=== PATIENT | female | born 1935 | race African-American/Black ===

== ENCOUNTER 2018-12-17 18:57 | Inpatient (IN) | payer MEDICARE, MEDICAID ==
[~2018-12-17] VITALS: Ht 167.6 cm; Wt 86.2 kg
[2018-12-17] MEDS ORDERED: ONDANSETRON 4MG ODT PO ONE (19:45)
[2018-12-17] MEDS ORDERED: HYDROCODONE/ACETAMINOPHEN 5/325MG TABLET PO ONE (19:45)
[2018-12-17 23:28] LABS: BASOPHILS % 0.7 % (0.0-2.0); EOSINOPHILS % 1.7 % (0.0-5.0); HEMATOCRIT. 33.1 % (36.0-48.0); HEMOGLOBIN. 10.9 g/dL (12.0-16.0); LYMPHOCYTES % 18.7 % (20.0-50.0); MEAN CORPUSCULAR HEMOGLOBIN 29.5 pg (28.0-32.0); MEAN CORPUSCULAR VOLUME 89.3 fL (81.0-99.0); MEAN PLATELET VOLUME 8.1 fl (7.4-10.4); MONOCYTES % 5.1 % (2.0-8.0); NEUTROPHILS % 73.8 % (40.0-76.0); PLATELET 291 x1000/uL (130-400); RED BLOOD CELL COUNT 3.71 mill/uL (4.2-5.4); RED CELL DISTRIBUTION WIDTH 14.4 % (11.6-14.6)
[2018-12-17 23:34] LABS: CHLORIDE 111 mEq/L (98-107)
[2018-12-17 23:37] LABS: PARTIAL THROMBOPLASTIN TIME 26.3 sec (23.4-31.0); PROTHROMBIN TIME 9.9 sec (9.1-11.1)
[2018-12-18] MEDS ORDERED: SODIUM CHLORIDE 0.9% 500 ML IV ONE (00:16)
[2018-12-18] MEDS ORDERED: DEXTROSE 50% WATER 50ML SYRINGE IV PRN (03:15)
[2018-12-18] MEDS ORDERED: CEFTRIAXONE 1 G PREMIX 50 ML IV SCH (03:15)
[2018-12-18 04:00] VITALS: BP 126/67
[2018-12-18] MEDS ORDERED: SODIUM CHLORIDE 0.45% 1,000 ML IV SCH (04:30)
[2018-12-18] MEDS: HYDROCODONE/ACETAMINOPHEN 5/325MG TABLET PO PRN ×3 (04:36→17:31)
[2018-12-18 04:37] VITALS: BP 129/78
[2018-12-18] MEDS: CEFTRIAXONE 1,000 MG in DEXTROSE 5% WATER 50 ML IV SCH (06:53)
[2018-12-18] MEDS: BLOOD SUGAR DIAGNOSTIC STRIP TEST SCH ×4 (06:54→21:00)
[2018-12-18] MEDS: INSULIN LISPRO 100 UNITS/ML SUBCUT SCH ×4 (07:50→21:00)
[2018-12-18 08:00] VITALS: BP 155/68
[2018-12-18 08:40] LABS: BASOPHILS % 0.8 % (0.0-2.0); EOSINOPHILS % 2.2 % (0.0-5.0); HEMATOCRIT. 34.3 % (36.0-48.0); HEMOGLOBIN. 11.1 g/dL (12.0-16.0); MEAN CORPUSCULAR HEMOGLOBIN 30.2 pg (28.0-32.0); MEAN CORPUSCULAR VOLUME 93.3 fL (81.0-99.0); MEAN PLATELET VOLUME 8.3 fl (7.4-10.4); MONOCYTES % 5.4 % (2.0-8.0); NEUTROPHILS % 69.6 % (40.0-76.0); PLATELET 304 x1000/uL (130-400); RED BLOOD CELL COUNT 3.68 mill/uL (4.2-5.4); RED CELL DISTRIBUTION WIDTH 14.4 % (11.6-14.6)
[2018-12-18] MEDS: PANTOPRAZOLE SODIUM 40 MG/VIAL IV SCH (09:00)
[2018-12-18 09:10] LABS: CHLORIDE 109 mEq/L (98-107)
[2018-12-18 11:17] VITALS: BP 144/73
[2018-12-18] MEDS ORDERED: LIDOCAINE HCL 1% 20ML VIAL (Pyxis) INJ ONE (14:14)
[2018-12-18] MEDS ORDERED: SODIUM BICARBONATE 4% (2.4MEQ) 5ML VIAL IV ONE (14:14)
[2018-12-18] MEDS ORDERED: IOHEXOL-300 50 ML BOTTLE IV ONE (14:42)
[2018-12-18] MEDS ORDERED: DOCUSATE SODIUM 100MG CAPSULE PO PRN (15:30)
[2018-12-18] MEDS ORDERED: ONDANSETRON HCL 4MG/2ML INJ IV PRN (15:30)
[2018-12-18] MEDS ORDERED: CLONIDINE 0.1MG TABLET PO PRN (15:30)
[2018-12-18] MEDS ORDERED: ACETAMINOPHEN 650MG SUPP PR PRN (15:30)
[2018-12-18] MEDS ORDERED: DIPHENHYDRAMINE 50MG/ML VIAL IV PRN (15:30)
[2018-12-18 16:00] VITALS: BP 146/72
[2018-12-18 16:36] LABS: T4 FREE 1.01 ng/dL (0.76-1.46)
[2018-12-18 17:00] LABS: CLARITY URINE CLOUDY (CLEAR); COLOR URINE YELLOW (YELLOW); KETONES URINE TRACE (NEGATIVE); LEUKOCYTE ESTERASE URINE 2+ (NEGATIVE); NITRITE URINE POSITIVE (NEGATIVE); OCCULT BLOOD URINE NEGATIVE (NEGATIVE); PH URINE 6.5 (4.5-8.0); PROTEIN URINE NEGATIVE (NEGATIVE)
[2018-12-18] MEDS: AMLODIPINE 5MG TABLET PO SCH (17:30)
[2018-12-18] MEDS: DEXT 5%/0.45% NACL 1000ML 1,000 ML IV SCH (17:34)
[2018-12-18 20:00] VITALS: BP 140/74
[2018-12-19] VITALS: BP 126/74
[2018-12-19 04:00] VITALS: BP 144/73
[2018-12-19] MEDS: CEFTRIAXONE 1,000 MG in DEXTROSE 5% WATER 50 ML IV SCH (05:00)
[2018-12-19] MEDS: INSULIN LISPRO 100 UNITS/ML SUBCUT SCH ×4 (07:50→21:00)
[2018-12-19] MEDS: BLOOD SUGAR DIAGNOSTIC STRIP TEST SCH ×4 (07:50→21:04)
[2018-12-19] MEDS: DEXT 5%/0.45% NACL 1000ML 1,000 ML IV SCH (07:55)
[2018-12-19 08:00] VITALS: BP 139/70
[2018-12-19 08:02] LABS: HEMATOCRIT 32.3 % (36.0-48.0); HEMOGLOBIN 10.7 g/dL (12.0-16.0); MEAN CORPUSCULAR HEMOGLOBIN 31.4 pg (28.0-32.0); MEAN CORPUSCULAR VOLUME 94.5 fL (81.0-99.0); PLATELET 244 x1000/uL (130-400); RED BLOOD CELL COUNT 3.42 mill/uL (4.2-5.4); RED CELL DISTRIBUTION WIDTH 14.2 % (11.6-14.6)
[2018-12-19] MEDS: PANTOPRAZOLE SODIUM 40 MG/VIAL IV SCH (08:15)
[2018-12-19 08:18] LABS: CHLORIDE 109 mEq/L (98-107)
[2018-12-19] MEDS: ENOXAPARIN 40MG/0.4ML SYR SUBCUT SCH (08:23)
[2018-12-19] MEDS: AMLODIPINE 5MG TABLET PO SCH (08:23)
[2018-12-19 12:00] VITALS: BP 143/79
[2018-12-19] MEDS ORDERED: LACTULOSE 20G/30ML UDC PO SCH (12:30)
[2018-12-19] MEDS ORDERED: NA PHOS,M-B/NA PHOS,DI-BA ENEMA 118ML PR NR (12:45)
[2018-12-19] MEDS ORDERED: LEVOFLOXACIN 500MG TABLET PO SCH (13:00)
[2018-12-19] MEDS ORDERED: TRAMADOL 50MG TABLET PO PRN (13:00)
[2018-12-19 15:51] LABS: HEMATOCRIT 32.5 % (36.0-48.0); HEMOGLOBIN 10.6 g/dL (12.0-16.0); MEAN CORPUSCULAR HEMOGLOBIN 29.1 pg (28.0-32.0); MEAN CORPUSCULAR VOLUME 89.5 fL (81.0-99.0); PLATELET 282 x1000/uL (130-400); RED BLOOD CELL COUNT 3.64 mill/uL (4.2-5.4); RED CELL DISTRIBUTION WIDTH 14.2 % (11.6-14.6)
[2018-12-19 16:00] VITALS: BP 143/71
[2018-12-19 20:00] VITALS: BP 134/69
[2018-12-20] VITALS: BP 149/81
[2018-12-20] MEDS: DEXT 5%/0.45% NACL 1000ML 1,000 ML IV SCH ×2 (00:47→16:15)
[2018-12-20 04:00] VITALS: BP 149/81
[2018-12-20] MEDS: CEFTRIAXONE 1,000 MG in DEXTROSE 5% WATER 50 ML IV SCH (05:18)
[2018-12-20] MEDS: HYDROCODONE/ACETAMINOPHEN 5/325MG TABLET PO PRN (06:11)
[2018-12-20] MEDS: BLOOD SUGAR DIAGNOSTIC STRIP TEST SCH ×4 (06:21→21:00)
[2018-12-20] MEDS: INSULIN LISPRO 100 UNITS/ML SUBCUT SCH ×4 (07:43→21:00)
[2018-12-20 08:00] VITALS: BP 139/75
[2018-12-20] MEDS: ENOXAPARIN 40MG/0.4ML SYR SUBCUT SCH (08:23)
[2018-12-20] MEDS: PANTOPRAZOLE SODIUM 40 MG/VIAL IV SCH (08:23)
[2018-12-20] MEDS: DOCUSATE SODIUM 100MG CAPSULE PO SCH ×2 (08:23→16:14)
[2018-12-20] MEDS: AMLODIPINE 5MG TABLET PO SCH (08:24)
[2018-12-20 12:00] VITALS: BP 111/81
[2018-12-20] MEDS: ACETAMINOPHEN 325MG TABLET PO PRN (12:48)
[2018-12-20 16:00] VITALS: BP 156/83
[2018-12-20] MEDS ORDERED: PIPERACILLIN/TAZ 3.375G PREMIX 50 ML IV SCH (18:00)
[2018-12-20] MEDS ORDERED: VANCOMYCIN 1500MG in DEXTROSE 5% WATER 250ML IV NR (18:30)
[2018-12-20 18:39] LABS: HEMOGLOBIN 11.1 g/dL (12.0-16.0); MEAN CORPUSCULAR HEMOGLOBIN 29.2 pg (28.0-32.0); MEAN CORPUSCULAR VOLUME 89.2 fL (81.0-99.0); PLATELET 293 x1000/uL (130-400); RED BLOOD CELL COUNT 3.81 mill/uL (4.2-5.4); RED CELL DISTRIBUTION WIDTH 14.2 % (11.6-14.6)
[2018-12-20 20:00] VITALS: BP 166/88
[2018-12-20] MEDS ORDERED: LEVOFLOXACIN 500MG TABLET PO SCH (20:00)
[2018-12-21] VITALS: BP 137/70
[2018-12-21] MEDS: HYDROCODONE/ACETAMINOPHEN 5/325MG TABLET PO PRN (00:22)
[2018-12-21 04:00] VITALS: BP 121/64
[2018-12-21] MEDS: BLOOD SUGAR DIAGNOSTIC STRIP TEST SCH ×2 (06:39→11:22)
[2018-12-21] MEDS: INSULIN LISPRO 100 UNITS/ML SUBCUT SCH ×2 (07:00→12:20)
[2018-12-21 07:47] LABS: HEMATOCRIT 31.1 % (36.0-48.0); HEMOGLOBIN 10.4 g/dL (12.0-16.0); MEAN CORPUSCULAR HEMOGLOBIN 30.1 pg (28.0-32.0); MEAN CORPUSCULAR VOLUME 90.2 fL (81.0-99.0); PLATELET 263 x1000/uL (130-400); RED BLOOD CELL COUNT 3.45 mill/uL (4.2-5.4); RED CELL DISTRIBUTION WIDTH 14.1 % (11.6-14.6)
[2018-12-21 07:59] LABS: CHLORIDE 106 mEq/L (98-107)
[2018-12-21 08:00] VITALS: BP 127/87
[2018-12-21] MEDS ORDERED: LIDOCAINE HCL 1% 20ML VIAL (Pyxis) INJ ONE (08:09)
[2018-12-21] MEDS ORDERED: SODIUM BICARBONATE 4% (2.4MEQ) 5ML VIAL IV ONE (08:09)
[2018-12-21] MEDS: PANTOPRAZOLE SODIUM 40 MG/VIAL IV SCH (08:37)
[2018-12-21] MEDS: DOCUSATE SODIUM 100MG CAPSULE PO SCH (08:37)
[2018-12-21] MEDS: AMLODIPINE 5MG TABLET PO SCH (08:37)
[2018-12-21] MEDS: ENOXAPARIN 40MG/0.4ML SYR SUBCUT SCH (08:37)
[2018-12-21] MEDS: DEXT 5%/0.45% NACL 1000ML 1,000 ML IV SCH (09:55)
[2018-12-21 11:51] VITALS: BP 134/67
[2018-12-21 12:06] VITALS: BP 134/67
[2018-12-21] MEDS ORDERED: VANC125C4 MT (12:42)
[2018-12-21] MEDS ORDERED: PIPE3.3736 IV (12:46)
[2018-12-21] MEDS ORDERED: LEVO500T2 IV (12:46)
[2018-12-21] MEDS ORDERED: VANC250C4 IV (12:48)
[2018-12-21] MEDS ORDERED: VANCOMYCIN 1500MG in DEXTROSE 5% WATER 250ML IV SCH (13:30)
[2018-12-21] MEDS ORDERED: LEVO500T2 MT ×2 (14:36→14:39)
[2018-12-21] MEDS: ACETAMINOPHEN 325MG TABLET PO PRN (15:10)
[2018-12-21 15:35] VITALS: BP 137/70
[2018-12-21] MEDS ORDERED: VANCOMYCIN 1250MG in DEXTROSE 5% WATER 250ML IV SCH (16:00)
[2018-12-22] MEDS ORDERED: VANCOMYCIN 1 G PREMIX 200 ML IV SCH (06:00)
== END 2018-12-21 17:10 | DRG 872 ==
LOC: ER 18:57 → 6EST 23:53 → ENRESERV 12-18 00:04
PROVIDERS: ADMIT Internal Medicine; ATTEND Internal Medicine
PROC: 05H733Z Insertion of Infusion Device into Right Axillary Vein, Percutaneous Approach (ICD-10-PCS; principal; 2018-12-18)
PROC: B51M1ZA Fluoroscopy of Right Upper Extremity Veins using Low Osmolar Contrast, Guidance (ICD-10-PCS; 2018-12-18)
PROC: B54MZZA Ultrasonography of Right Upper Extremity Veins, Guidance (ICD-10-PCS; 2018-12-18)
PROC: 02HV33Z Insertion of Infusion Device into Superior Vena Cava, Percutaneous Approach (ICD-10-PCS; 2018-12-21)
PROC: B548ZZA Ultrasonography of Superior Vena Cava, Guidance (ICD-10-PCS; 2018-12-21)
PROC: B5181ZA Fluoroscopy of Superior Vena Cava using Low Osmolar Contrast, Guidance (ICD-10-PCS; 2018-12-21)
DX: A41.9 Sepsis, unspecified organism (principal); N39.0 Urinary tract infection, site not specified; I69.354 Hemiplegia and hemiparesis following cerebral infarction affecting left non-dominant side; D68.59 Other primary thrombophilia; L03.90 Cellulitis, unspecified; F11.20 Opioid dependence, uncomplicated; S80.11XA Contusion of right lower leg, initial encounter; M16.0 Bilateral primary osteoarthritis of hip; I10 Essential (primary) hypertension; E86.0 Dehydration; E66.9 Obesity, unspecified; E11.9 Type 2 diabetes mellitus without complications; K21.9 Gastro-esophageal reflux disease without esophagitis; K59.09 Other constipation; Z96.651 Presence of right artificial knee joint; E78.5 Hyperlipidemia, unspecified; D64.9 Anemia, unspecified; W01.0XXA Fall on same level from slipping, tripping and stumbling without subsequent striking against object, initial encounter; Y93.89 Activity, other specified; Y99.8 Other external cause status; Z91.012 Allergy to eggs; Y92.129 Unspecified place in nursing home as the place of occurrence of the external cause; Z90.710 Acquired absence of both cervix and uterus
CPT/HCPCS: 36415; 36569; 71045; 72131; 72192; 73502; 73552; 73562; 73700; 74018; 75820; 76937; 77001; 80048; 80061; 82962; 83036; 83880; 84145; 84439; 84443; 84484; 85027; 86850; 86900; 93005; 93970; 93971; 97162; 99285; C1725; C1893; C9113; J0696; J1650; J1815; J2543; J3370; J3490; J7040; J7050; J7060; Q0162; Q9967

== ENCOUNTER 2025-09-24 20:25 | Inpatient (IN) | payer MEDICARE, MEDICAID ==
[~2025-09-24] VITALS: Ht 167.6 cm; Wt 80.7 kg
[~2025-09-24 20:25] MED LIST: AMLO5TAB88 PO; ATOR20TA65 PO; CLOP75TA33 PO; DONE10TA43 PO; FAMO20TA8 PO; FURO40TA5 PO; GABA-529 PO; LOSA100T33 PO
[2025-09-24 20:37] VITALS: O2SAT 98
[2025-09-24 23:12] LABS: BASOPHILS % 0.9 % (0.0-2.0); EOSINOPHILS % 0.5 % (0.0-5.0); HEMATOCRIT. 44.9 % (36.0-48.0); HEMOGLOBIN. 14.4 g/dL (12.0-16.0); LYMPHOCYTES % 18.1 % (20.0-50.0); MEAN PLATELET VOLUME 10.3 fl (7.4-10.4); MONOCYTES % 4.0 % (2.0-8.0); NEUTROPHILS % 76.5 % (40.0-76.0); PLATELET 276 x1000/uL (130-400); RED BLOOD CELL COUNT 4.88 mill/uL (4.2-5.4); RED CELL DISTRIBUTION WIDTH 17.4 % (11.6-14.6)
[2025-09-24 23:25] LABS: CREATININE 1.1 mg/dL (0.6-1.0); UREA NITROGEN BLOOD 33 mg/dL (9-23)
[2025-09-24 23:26] LABS: ETHANOL BLOOD < 10 mg/dL (<10); PROTEIN TOTAL 6.4 g/dL (6.0-8.3)
[2025-09-24 23:27] LABS: ASPARTATE AMINOTRANSFERASE 24 IU/L (<34); BILIRUBIN DIRECT 0.2 mg/dL (<=3.0)
[2025-09-24 23:28] LABS: BILIRUBIN TOTAL 0.5 mg/dL (0.1-1.0); INR 1.2
[2025-09-24 23:37] LABS: TROPONIN I HIGH SENSITIVITY 202 ng/L (3.0-34)
[2025-09-25] MEDS: SODIUM CHLORIDE 0.9% 1,000 ML IV ONE (00:02)
[2025-09-25 01:15] VITALS: BP 150/81; PULSE 72; RESP 18; TEMP 36.5848
[2025-09-25] MEDS ORDERED: ENOX40SY27 SQ (01:30)
[2025-09-25] MEDS ORDERED: ASPI-867 MT (01:30)
[2025-09-25] MEDS ORDERED: CLON0.1T MT (01:33)
[2025-09-25] MEDS ORDERED: CHOL400D7 PO (01:35)
[2025-09-25] MEDS ORDERED: PANT40TA51 PO (01:36)
[2025-09-25 06:08] LABS: INFLUENZA TYPE A Presumptive Negative (Pres. Neg.); INFLUENZA TYPE B Presumptive Negative (Pres. Neg.)
[2025-09-25 06:11] LABS: RESPIRATORY SYNCYTIAL VIRUS Not Detected (Not Detectd)
[2025-09-25 08:00] VITALS: BP 133/74; PULSE 94; RESP 18; TEMP 36.3; O2SAT 99
[2025-09-25] MEDS ORDERED: ERGOCALCIFEROL 50000UNITS CAPSULE PO SCH (10:00)
[2025-09-25] MEDS: PANTOPRAZOLE SODIUM 40 MG/VIAL IV SCH (10:00)
[2025-09-25 12:00] VITALS: BP 145/79; PULSE 101; RESP 18; TEMP 36.4; O2SAT 96
[2025-09-25 16:00] VITALS: BP 124/65; PULSE 100; RESP 20; TEMP 36.5; O2SAT 96
[2025-09-25] MEDS: ENOXAPARIN 30MG/0.3ML SYR SUBCUT SCH (18:01)
[2025-09-25] MEDS: GABAPENTIN 100MG CAPSULE PO SCH (18:01)
[2025-09-26] VITALS: BP 134/78; PULSE 92; RESP 18; TEMP 36.4; O2SAT 99
[2025-09-26 04:00] VITALS: BP 132/66; PULSE 100; RESP 17; TEMP 36.4; O2SAT 99
[2025-09-26 08:00] VITALS: BP 132/75; PULSE 90; RESP 18; TEMP 35.6; O2SAT 100
[2025-09-26] MEDS: CHOLECALCIFEROL (VIT D3) 400 UNIT TABLET PO SCH (08:53)
[2025-09-26] MEDS ORDERED: ENOXAPARIN 40MG/0.4ML SYR SUBCUT SCH (09:00)
[2025-09-26 12:00] VITALS: BP 129/75; PULSE 92; RESP 18; TEMP 36.3; O2SAT 98
[2025-09-26 16:00] VITALS: BP 134/80; PULSE 95; RESP 18; TEMP 36.2; O2SAT 96
[2025-09-26 20:00] VITALS: BP 112/59; PULSE 92; RESP 18; TEMP 35.8; O2SAT 99
[2025-09-27] VITALS: BP 130/64; PULSE 91; RESP 18; TEMP 36.1; O2SAT 100
[2025-09-27 04:00] VITALS: BP 125/69; PULSE 90; RESP 18; TEMP 36.2; O2SAT 97
[2025-09-27 08:00] VITALS: BP_SYST 121; BP_DIAS 70; BP_DIAS 74; PULSE 101; PULSE 94; RESP 18; TEMP 36.6; TEMP 36.9; O2SAT 100
[2025-09-27 12:00] VITALS: BP 131/67; PULSE 96; RESP 18; TEMP 36.4; O2SAT 96
[2025-09-27] MEDS ORDERED: DEXTROSE 50% WATER 50ML SYRINGE IV PRN (13:30)
[2025-09-27] MEDS: PIPERACILLIN/TAZO 3.375G/50ML 50 ML IV SCH (13:35)
[2025-09-27 16:00] VITALS: BP 121/74; PULSE 94; RESP 18; TEMP 36.9; O2SAT 100
[2025-09-27] MEDS: BLOOD SUGAR DIAGNOSTIC STRIP TEST SCH (17:10)
[2025-09-27] MEDS: INSULIN LISPRO 100 UNITS/ML SUBCUT SCH (17:40)
[2025-09-27 18:43] LABS: CLARITY URINE CLEAR (CLEAR); COLOR URINE YELLOW (YELLOW); GLUCOSE URINE NEGATIVE (NEGATIVE); KETONES URINE 1+ (NEGATIVE); LEUKOCYTE ESTERASE URINE 1+ (NEGATIVE); NITRITE URINE NEGATIVE (NEGATIVE); OCCULT BLOOD URINE 1+ (NEGATIVE); PH URINE 6.0 (4.5-8.0); PROTEIN URINE 1+ (NEGATIVE); SPECIFIC GRAVITY URINE 1.020 (1.005-1.030); UROBILINOGEN URINE 1.0 E.U./dL (0.2-1.0)
[2025-09-27 19:19] LABS: SQUAMOUS EPITHELIAL CELL URINE 2+ /lpf (RARE/1+)
[2025-09-27 19:20] LABS: BACTERIA URINE 3+
[2025-09-27 20:00] VITALS: BP 124/64; PULSE 89; RESP 17; TEMP 36.2; O2SAT 96
[2025-09-27 21:47] LABS: BG BASE EXCESS -2.3 mmol/L (-2.0-3.0); BG CARBOXYHEMOGLOBIN 1.2 % (0.5-1.5); BG DEOXYHEMOGLOBIN 2.8 % (0.0-5.0); BG HCO3 ACT 21.6 mmol/L (21.0-28.0); BG METHEMOGLOBIN 0.0 % (0.5-1.5); BG OXYGEN SATURATION 97.2 % (94.0-98.0); BG OXYHEMOGLOBIN 96.0 % (94.0-98.0); BG PCO2 34.7 mmHg (32.0-45.0); BG PH 7.412 (7.350-7.450); BG PO2 93.8 mmHg (83.0-108.0); BG SAMPLE SITE RIGHT RADIAL; BG TOTAL HEMOGLOBIN 14.0 g/dL (12.0-16.0); BG VENT MODE ROOM AIR
[2025-09-28] VITALS: BP 120/69; PULSE 87; RESP 17; TEMP 35.6; O2SAT 95
[2025-09-28 04:00] VITALS: BP 133/60; PULSE 89; RESP 18; TEMP 36.2; O2SAT 96
[2025-09-28 08:00] VITALS: BP 125/63; PULSE 87; RESP 20; TEMP 36.5; O2SAT 97
[2025-09-28 12:00] VITALS: BP 129/67; PULSE 84; RESP 16; TEMP 36.4; O2SAT 98
[2025-09-28 16:00] VITALS: BP 124/63; PULSE 86; RESP 16; TEMP 36.3; O2SAT 97
[2025-09-28 16:44] LABS: BASOPHILS % 0.9 % (0.0-2.0); EOSINOPHILS % 2.1 % (0.0-5.0); HEMATOCRIT. 38.8 % (36.0-48.0); HEMOGLOBIN. 12.9 g/dL (12.0-16.0); LYMPHOCYTES % 25.7 % (20.0-50.0); MEAN PLATELET VOLUME 10.9 fl (7.4-10.4); MONOCYTES % 4.3 % (2.0-8.0); NEUTROPHILS % 67.0 % (40.0-76.0); PLATELET 208 x1000/uL (130-400); RED BLOOD CELL COUNT 4.12 mill/uL (4.2-5.4); RED CELL DISTRIBUTION WIDTH 18.2 % (11.6-14.6)
[2025-09-28 16:58] LABS: CREATININE 1.0 mg/dL (0.6-1.0); UREA NITROGEN BLOOD 26 mg/dL (9-23)
[2025-09-28] MEDS: POTASSIUM CHLORIDE 20MEQ/PACKET PO SCH (19:09)
[2025-09-28] MEDS: DEXTROSE 5% WATER 1,000 ML IV SCH (19:09)
[2025-09-28] MEDS: KCL 10MEQ/50ML PREMIX 50 ML IV SCH (19:59)
[2025-09-28 20:00] VITALS: BP 108/67; PULSE 96; RESP 18; TEMP 36.9; O2SAT 97
[2025-09-29] VITALS: BP 111/77; PULSE 90; RESP 18; TEMP 37; O2SAT 97
[2025-09-29 04:00] VITALS: BP 116/80; PULSE 70; RESP 18; TEMP 36.9; O2SAT 98
[2025-09-29] MEDS: PIPERACILLIN/TAZO 3.375G/50ML 50 ML IV SCH (05:35)
[2025-09-29 08:00] VITALS: BP 113/50; PULSE 62; RESP 19; TEMP 36.5; O2SAT 98
[2025-09-29 12:00] VITALS: BP 112/63; PULSE 80; RESP 19; TEMP 36.6; O2SAT 97
[2025-09-29 16:00] VITALS: BP 116/65; PULSE 84; RESP 19; TEMP 36.7; O2SAT 97
[2025-09-29 20:00] VITALS: BP 130/80; PULSE 88; RESP 18; TEMP 37; O2SAT 97
[2025-09-29] MEDS: MEROPENEM 1G/100ML 100 ML IV SCH (23:51)
[2025-09-30] VITALS: BP 129/60; PULSE 79; RESP 20; TEMP 36.9; O2SAT 98
[2025-09-30 04:00] VITALS: BP 123/56; PULSE 92; RESP 18; TEMP 37; O2SAT 98
[2025-09-30 06:48] LABS: BASOPHILS % 1.0 % (0.0-2.0); EOSINOPHILS % 3.1 % (0.0-5.0); HEMATOCRIT. 42.4 % (36.0-48.0); HEMOGLOBIN. 14.0 g/dL (12.0-16.0); LYMPHOCYTES % 20.3 % (20.0-50.0); MEAN PLATELET VOLUME 11.1 fl (7.4-10.4); MONOCYTES % 9.3 % (2.0-8.0); NEUTROPHILS % 66.3 % (40.0-76.0); PLATELET 159 x1000/uL (130-400); RED BLOOD CELL COUNT 4.36 mill/uL (4.2-5.4); RED CELL DISTRIBUTION WIDTH 19.1 % (11.6-14.6)
[2025-09-30 08:00] VITALS: BP 134/71; PULSE 84; RESP 18; TEMP 36.1; O2SAT 99
[2025-09-30 20:00] VITALS: BP 107/54; PULSE 85; RESP 16; TEMP 36.3; O2SAT 94
[2025-10-01] VITALS: BP 108/60; PULSE 82; RESP 18; TEMP 36.3; O2SAT 95
[2025-10-01 04:00] VITALS: BP 121/73; PULSE 93; RESP 17; TEMP 36.2; O2SAT 95
[2025-10-01] MEDS: POTASSIUM CHLORIDE 20MEQ/PACKET PO NR (05:59)
[2025-10-01 08:00] VITALS: BP 113/53; PULSE 90; RESP 18; TEMP 36.4; O2SAT 96
[2025-10-01 12:00] VITALS: BP 103/55; PULSE 85; RESP 18; TEMP 36.5; O2SAT 98
[2025-10-01 12:29] LABS: BASOPHILS % 0.5 % (0.0-2.0); EOSINOPHILS % 2.7 % (0.0-5.0); HEMATOCRIT. 42.2 % (36.0-48.0); HEMOGLOBIN. 13.7 g/dL (12.0-16.0); LYMPHOCYTES % 25.5 % (20.0-50.0); MEAN PLATELET VOLUME 10.9 fl (7.4-10.4); MONOCYTES % 12.4 % (2.0-8.0); NEUTROPHILS % 58.9 % (40.0-76.0); PLATELET 148 x1000/uL (130-400); RED BLOOD CELL COUNT 4.45 mill/uL (4.2-5.4); RED CELL DISTRIBUTION WIDTH 18.7 % (11.6-14.6)
[2025-10-01 12:46] LABS: CREATININE 0.7 mg/dL (0.6-1.0); PROTEIN TOTAL 5.6 g/dL (6.0-8.3); UREA NITROGEN BLOOD 12 mg/dL (9-23)
[2025-10-01 12:47] LABS: ASPARTATE AMINOTRANSFERASE 23 IU/L (<34)
[2025-10-01 12:48] LABS: BILIRUBIN TOTAL 0.5 mg/dL (0.1-1.0)
[2025-10-01 16:00] VITALS: BP 117/60; PULSE 85; RESP 18; TEMP 36.4; O2SAT 98
[2025-10-01 20:00] VITALS: BP 99/55; PULSE 84; RESP 17; TEMP 36.5; O2SAT 99
[2025-10-02] VITALS: BP 99/47; PULSE 81; RESP 17; TEMP 36.5; O2SAT 99
[2025-10-02 04:00] VITALS: BP 128/56; PULSE 86; RESP 18; TEMP 36.5; O2SAT 99
[2025-10-02 08:00] VITALS: BP 92/53; PULSE 86; RESP 20; TEMP 37; O2SAT 100
[2025-10-02 12:00] VITALS: BP 104/66; PULSE 96; RESP 20; TEMP 36.9; O2SAT 97
[2025-10-02 16:00] VITALS: BP 104/58; PULSE 95; RESP 20; TEMP 36.7; O2SAT 97
[2025-10-02 20:00] VITALS: BP 120/62; PULSE 50; RESP 18; TEMP 36.4; O2SAT 97
[2025-10-03] VITALS: BP 140/69; PULSE 88; RESP 19; TEMP 36.6; O2SAT 98
[2025-10-03 04:00] VITALS: BP 110/60; PULSE 94; RESP 19; TEMP 36.7; O2SAT 99
[2025-10-03 12:00] VITALS: BP 123/65; PULSE 84; RESP 18; TEMP 36.5; O2SAT 100
[2025-10-03 16:00] VITALS: BP 108/53; PULSE 91; RESP 19; TEMP 36.6; O2SAT 100
[2025-10-03 20:00] VITALS: BP 119/60; PULSE 99; RESP 17; TEMP 36.2; O2SAT 95
[2025-10-04] VITALS: BP 107/56; PULSE 50; RESP 16; TEMP 36.2; O2SAT 100
[2025-10-04 04:00] VITALS: BP 135/81; PULSE 96; RESP 17; TEMP 36.1; O2SAT 95
[2025-10-04 08:00] VITALS: BP 122/59; PULSE 93; RESP 18; TEMP 36.9; O2SAT 99
[2025-10-04 12:00] VITALS: BP 133/61; PULSE 96; RESP 20; TEMP 36.4; O2SAT 96
[2025-10-04 16:00] VITALS: BP 116/66; PULSE 97; RESP 18; TEMP 36.3; O2SAT 98
[2025-10-04 20:00] VITALS: BP 114/58; PULSE 87; RESP 17; TEMP 36.4; O2SAT 99
[2025-10-04 22:34] LABS: CREATININE 0.7 mg/dL (0.6-1.0)
[2025-10-04 22:35] LABS: UREA NITROGEN BLOOD 10 mg/dL (9-23)
[2025-10-05] VITALS: BP 120/60; PULSE 86; RESP 18; TEMP 36.5; O2SAT 99
[2025-10-05 00:34] LABS: HEMATOCRIT. 41.1 % (36.0-48.0); HEMOGLOBIN. 13.4 g/dL (12.0-16.0); MEAN PLATELET VOLUME 10.9 fl (7.4-10.4); PLATELET 153 x1000/uL (130-400); RED BLOOD CELL COUNT 4.31 mill/uL (4.2-5.4); RED CELL DISTRIBUTION WIDTH 18.5 % (11.6-14.6)
[2025-10-05 04:00] VITALS: BP 122/64; PULSE 83; RESP 18; TEMP 36.4; O2SAT 99
[2025-10-05 08:00] VITALS: BP 116/61; PULSE 83; RESP 18; TEMP 36.1; O2SAT 96
[2025-10-05 12:00] VITALS: BP 115/67; PULSE 85; RESP 18; TEMP 36.4; O2SAT 95
[2025-10-05 14:06] LABS: BASOPHILS % 1.1 % (0.0-2.0); EOSINOPHILS % 2.9 % (0.0-5.0); HEMATOCRIT. 40.7 % (36.0-48.0); HEMOGLOBIN. 13.4 g/dL (12.0-16.0); LYMPHOCYTES % 34.3 % (20.0-50.0); MEAN PLATELET VOLUME 11.0 fl (7.4-10.4); MONOCYTES % 11.2 % (2.0-8.0); NEUTROPHILS % 50.5 % (40.0-76.0); PLATELET 167 x1000/uL (130-400); RED BLOOD CELL COUNT 4.33 mill/uL (4.2-5.4); RED CELL DISTRIBUTION WIDTH 18.4 % (11.6-14.6)
[2025-10-05 14:22] LABS: CREATININE 0.7 mg/dL (0.6-1.0); UREA NITROGEN BLOOD 8 mg/dL (9-23)
[2025-10-05 16:00] VITALS: BP 137/79; PULSE 93; RESP 20; TEMP 36.1; O2SAT 98
[2025-10-05] MEDS: DEXTROSE 5% WATER 1,000 ML IV SCH (16:25)
[2025-10-05 20:00] VITALS: BP 106/58; PULSE 86; RESP 20; TEMP 37; O2SAT 98
[2025-10-05 22:00] LABS: EOSINOPHILS % MANUAL 1.0 % (0.0-5.0); LYMPHOCYTES % MANUAL 26.0 % (20.0-60.0); MONOCYTES % MANUAL 17.0 % (2.0-8.0); NEUTROPHILS % MANUAL 56.0 % (45.0-75.0); PLATELET ESTIMATE NORMAL
[2025-10-06] VITALS: BP 102/60; PULSE 89; RESP 18; TEMP 36.7; O2SAT 97
[2025-10-06] MEDS: DEXT 5%/0.45% NACL 1000ML 1,000 ML IV SCH (00:34)
[2025-10-06 04:00] VITALS: BP 100/59; PULSE 83; RESP 18; TEMP 37; O2SAT 97
[2025-10-06 08:00] VITALS: BP 126/66; PULSE 80; RESP 16; TEMP 36.9; O2SAT 98
[2025-10-06] MEDS ORDERED: CEFAZOLIN SODIUM 1000MG/VIAL IV PRN (10:00)
[2025-10-06] MEDS: CEFAZOLIN 1000MG PREMIX 50ML IV SCH (11:47)
[2025-10-06 12:00] VITALS: BP 125/67; PULSE 83; RESP 18; TEMP 36.1; O2SAT 98
[2025-10-06] MEDS ORDERED: ONDANSETRON HCL 4MG/2ML INJ IV PRN (14:00)
[2025-10-06 14:58] LABS: BASOPHILS % 1.5 % (0.0-2.0); EOSINOPHILS % 3.4 % (0.0-5.0); HEMATOCRIT. 37.8 % (36.0-48.0); HEMOGLOBIN. 12.4 g/dL (12.0-16.0); LYMPHOCYTES % 34.8 % (20.0-50.0); MEAN PLATELET VOLUME 10.4 fl (7.4-10.4); MONOCYTES % 9.1 % (2.0-8.0); NEUTROPHILS % 51.2 % (40.0-76.0); PLATELET 191 x1000/uL (130-400); RED BLOOD CELL COUNT 4.08 mill/uL (4.2-5.4); RED CELL DISTRIBUTION WIDTH 18.3 % (11.6-14.6)
[2025-10-06 15:12] LABS: CREATININE 0.6 mg/dL (0.6-1.0); UREA NITROGEN BLOOD 8 mg/dL (9-23)
[2025-10-06] MEDS ORDERED: POTASSIUM CHLORIDE 40 MEQ in DEXT 5% WATER 230 ML IV ONE (15:15)
[2025-10-06 15:20] LABS: INR 1.0
[2025-10-06 16:00] VITALS: BP 114/62; PULSE 83; RESP 18; TEMP 36.2; O2SAT 98
[2025-10-06] MEDS: KCL 20MEQ/100ML X 2 FOR TOTAL KCL 40MEQ/200ML IV SCH (16:16)
[2025-10-06 20:00] VITALS: BP 106/55; PULSE 84; RESP 20; TEMP 37; O2SAT 98
[2025-10-07] VITALS: BP 106/55; PULSE 70; RESP 18; TEMP 36.9; O2SAT 97
[2025-10-07 02:01] LABS: BASOPHILS % 0.8 % (0.0-2.0); EOSINOPHILS % 2.9 % (0.0-5.0); HEMATOCRIT. 42.9 % (36.0-48.0); HEMOGLOBIN. 14.1 g/dL (12.0-16.0); LYMPHOCYTES % 30.6 % (20.0-50.0); MEAN PLATELET VOLUME 10.4 fl (7.4-10.4); MONOCYTES % 11.8 % (2.0-8.0); NEUTROPHILS % 53.9 % (40.0-76.0); RED BLOOD CELL COUNT 4.63 mill/uL (4.2-5.4); RED CELL DISTRIBUTION WIDTH 19.0 % (11.6-14.6)
[2025-10-07 02:10] LABS: CREATININE 0.6 mg/dL (0.6-1.0)
[2025-10-07 02:11] LABS: UREA NITROGEN BLOOD 6 mg/dL (9-23)
[2025-10-07 02:33] LABS: PLATELET 141 x1000/uL (130-400)
[2025-10-07 04:00] VITALS: BP 115/58; PULSE 85; RESP 20; TEMP 36.7; O2SAT 98
[2025-10-07 08:00] VITALS: BP 137/63; PULSE 80; RESP 18; TEMP 36.3; O2SAT 97
[2025-10-07] MEDS: ENOXAPARIN 40MG/0.4ML SYR SUBCUT SCH (08:02)
[2025-10-07] MEDS ORDERED: CEFAZOLIN 1000MG PREMIX 50ML IV PRN (08:15)
[2025-10-07 13:14] VITALS: BP 114/59; PULSE 63; RESP 17; TEMP 36.3; O2SAT 98
[2025-10-07 16:00] VITALS: BP 119/66; PULSE 91; RESP 18; TEMP 36.1; O2SAT 95
[2025-10-07 20:00] VITALS: BP 115/65; PULSE 85; RESP 20; TEMP 37; O2SAT 98
[2025-10-08] VITALS: BP 118/60; PULSE 82; RESP 20; TEMP 36.7; O2SAT 98
[2025-10-08 04:00] VITALS: BP 109/68; PULSE 71; RESP 20; TEMP 36.9; O2SAT 97
[2025-10-08] MEDS: METOCLOPRAMIDE HCL 10MG/2ML VIAL IV SCH (05:32)
[2025-10-08 08:00] VITALS: BP 106/58; PULSE 86; RESP 19; TEMP 36.6; O2SAT 99
[2025-10-08 12:00] VITALS: BP 128/67; PULSE 95; RESP 18; TEMP 36.6; O2SAT 99
[2025-10-08] MEDS: ACETAMINOPHEN 650MG/20.3ML UDC PO PRN (14:03)
[2025-10-08 16:00] VITALS: BP 129/71; PULSE 103; RESP 18; TEMP 36.6; O2SAT 98
[2025-10-08] MEDS ORDERED: METO10TA3 MT (18:03)
[2025-10-08 18:16] VITALS: BP 129/71; PULSE 103; RESP 18; TEMP 97.9
[2025-10-09] MEDS ORDERED: METOCLOPRAMIDE HCL 5MG TABLET PEG SCH
== END 2025-10-08 20:25 | DRG 70 ==
LOC: ER 20:25 → 8WST 23:37 → EDBEDREQTM 23:39 → EDBEDREQSVC 23:39 → EDBEDREQ 23:39 → ENRESERV 09-25 00:14
PROVIDERS: ADMIT Internal Medicine; ATTEND Internal Medicine
PROC: 0DH63UZ Insertion of Feeding Device into Stomach, Percutaneous Approach (ICD-10-PCS; principal; 2025-10-07)
DX: G93.40 Encephalopathy, unspecified (principal); I21.A1 Myocardial infarction type 2; E87.0 Hyperosmolality and hypernatremia; Z66 Do not resuscitate; B96.1 Klebsiella pneumoniae [K. pneumoniae] as the cause of diseases classified elsewhere; K22.2 Esophageal obstruction; N17.9 Acute kidney failure, unspecified; N39.0 Urinary tract infection, site not specified; R65.10 Systemic inflammatory response syndrome (SIRS) of non-infectious origin without acute organ dysfunction; I11.0 Hypertensive heart disease with heart failure; D64.9 Anemia, unspecified; E11.9 Type 2 diabetes mellitus without complications; F02.80 Dementia in other diseases classified elsewhere, unspecified severity, without behavioral disturbance, psychotic disturbance, mood disturbance, and anxiety; J45.909 Unspecified asthma, uncomplicated; R47.01 Aphasia; Z16.12 Extended spectrum beta lactamase (ESBL) resistance; R62.7 Adult failure to thrive; Z20.822 Contact with and (suspected) exposure to COVID-19; G30.9 Alzheimer's disease, unspecified; K44.9 Diaphragmatic hernia without obstruction or gangrene; K21.9 Gastro-esophageal reflux disease without esophagitis; I50.9 Heart failure, unspecified; R13.11 Dysphagia, oral phase; E78.5 Hyperlipidemia, unspecified; E87.6 Hypokalemia; L22 Diaper dermatitis; Z68.28 Body mass index [BMI] 28.0-28.9, adult; Z88.8 Allergy status to other drugs, medicaments and biological substances; Z86.73 Personal history of transient ischemic attack (TIA), and cerebral infarction without residual deficits; Z91.0120 Allergy to eggs, unspecified; Z79.899 Other long term (current) drug therapy; Z98.84 Bariatric surgery status; Z79.82 Long term (current) use of aspirin
CPT/HCPCS: 36415; 36600; 71045; 76700; 80048; 80053; 80076; 80320; 81003; 82140; 82375; 82550; 82805; 82962; 83036; 83735; 84134; 84484; 85025; 87077; 87186; 87420; 87426; 87804; 92610; 93005; 93970; 99291; A4606; A4615; J0690; J1650; J1815; J2185; J2470; J2543; J2765; J3480; J7030; J7040; J7070; G0480